=== PATIENT | male | born 1970 | race Caucasian/White ===

== ENCOUNTER 2016-12-27 04:06 | Inpatient (IN) | payer BC, SELFPAY ==
[2016-12-24 14:21] LABS: HEMATOCRIT 40.9 % (40.0-51.0); HEMOGLOBIN 13.8 g/dL (13.6-17.8)
--- NOTE | ~2016-12-27 | HP ---
History And Physical [facility] [id number] [facility] [place]. [address] NAME: ETHEL BERRY PASCUAL : 68 STATUS : ADM IN PAT#: [id number] AGE: 46 ADM/REG DATE : 12/27/16 MR#: [id number] REPORT SERV DATE: 12/29/16 DICTATED BY: JAKE CHOUDHURY DATE: 12/29/16 REPORT STATUS : Draft TRANSCRIBED BY: MODL DATE: 12/29/16 DATE OF ADMISSION: 12/27/2016 HISTORY AND PHYSICAL/CONSULTATION REASON FOR CONSULTATION: Intractable nausea and vomiting. HISTORY OF PRESENT ILLNESS: This is a 46-year-old white male who is status post a lumbosacral surgery performed by Dr. Contreras on 12/27/2016. He states that he had progressive and worsening pain that radiated from his back to his buttock and down both legs. The difficulties began some seven years ago, but he has been progressively getting worse over the past month. He started to have some worsening nausea and vomiting postoperatively and has had several episodes of this, has had significant hiccups, has felt like his abdomen has been quite swollen. He does state that he has had problems with constipation and abdominal bloating and gas for some years and had a colonoscopy done in 2013, where he was told he had problems with gas and constipation there and had a polyp removed and also reviewed an old CT scan from 2013 that indicated significant constipation then as well, but currently patient is exhibiting signs of ileus and he is hiccuping. His last episode of vomiting was early a.m., so his is at the bedside and is able to offer some history as well, as he does not currently have any prescriptions prior to admission and does not have a primary care. Of note, he also states that he has had some difficulties with polyuria for the past several weeks, waking up multiple times during the night to urinate and he has had some urinary retention postoperatively here. ALLERGIES: NO KNOWN DRUG OR FOOD ALLERGIES. PAST MEDICAL HISTORY: Heartburn, abdominal bloating, and gas. SURGICAL HISTORY: Only the colonoscopy as stated above. SOCIAL HISTORY: He smokes one pack a day of cigarettes. He drinks between 6 pack to a 12 pack of beers primarily on the weekends and occasionally during the week. 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 As stated, he does not have a primary care. REVIEW OF SYSTEMS: Otherwise negative 10-point review except for this thing stated in the above HPI. PHYSICAL EXAMINATION: VITAL SIGNS: Pulse rate of 90, temperature 97.3, blood pressure 112/63, respiratory rate of 18, room air 95%. GENERAL: He is alert and oriented x3 with the cooperative and awake for exam. He is in some mild distress with constant hiccuping during the conversation. NECK: He has no appreciable lymphadenopathy. No JVD noted. LUNGS: His lungs are clear, but diminished in the bases. CARDIOVASCULAR: No murmurs, rubs, or gallops are appreciated on auscultation of the chest. He is regular rate and rhythm. History And Physical [address] [address] NAME: ETHEL BERRY PASCUAL : 68 STATUS : ADM IN [facility]#: [id number] AGE: 46 ADM/REG DATE : 12/27/16 MR#: [id number] REPORT SERV DATE: 12/29/16 DICTATED BY: JAKE CHOUDHURY DATE: 12/29/16 REPORT STATUS : Draft TRANSCRIBED BY: RICCARDO DATE: 12/29/16 ABDOMEN: Extremely distended and rounded with hypoactive bowel sounds. He does have positive flatus and currently is hiccuping, and I have reviewed the KUB. EXTREMITIES: No edema in his lower extremities. Normal distal pulses. He has bilateral lower extremity weakness to both pronation and supination of his feet and adduction and abduction of the gross motor. HEENT: PERRLA is noted. Sclerae clear. SKIN: Otherwise skin is warm and dry. LABORATORY DATA: He does not currently have any recent lab work reviewed. A KUB x-ray personally showing significant gaseous distention and constipation. ASSESSMENT: 1. Nausea and vomiting. 2. Constipation. 3. Hiccups. 4. Questionable ileus versus small-bowel obstruction. 5. Urinary retention. 6. Polyuria. 7. Tobacco use. 8. Alcohol use. 9. Back pain, radiculopathy, status post lumbar surgery. PLAN: Will institute Dulcolax suppositories twice a day. We will add Reglan IV every eight hours. We will place an NG tube to low intermittent suction if he has persistent nausea and vomiting. We will obtain lab work to include CBC, CMP, TSH, hemoglobin A1c, and urinalysis. 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 I have updated the patient and at bedside. Questions were answered extensively. They are in agreement with this plan going forward. I have instructed him that he needs to establish a primary care JANELLE after discharge as well. We appreciate the opportunity to participate in the care of this patient. We will follow along with you. KIMBERLY/RICCARDO Jake Choudhury NP / [id number] CC: Marquez Contreras II, M.D.
--- NOTE | ~2016-12-27 | OP ---
Record Of Operation [facility] [address] [place]. [address] NAME: ETHEL BERRY PASCUAL : 68 STATUS : ADM IN PAT#: [id number] AGE: 46 ADM/REG DATE : 12/27/16 MR#: [id number] REPORT SERV DATE: 12/27/16 DICTATED BY: SOILA CONTRERAS II DATE: 12/27/16 REPORT STATUS : Draft TRANSCRIBED BY: MODL DATE: 12/27/16 DATE OF PROCEDURE: 12/27/2016 PREOPERATIVE DIAGNOSES: 1. Left lower extremity radiculopathy. 2. Discogenic low back pain, L4-5, L5-S1 with associated Modic changes. 3. Stenosis L4-5, L5-S1. POSTOPERATIVE DIAGNOSES: 1. Left lower extremity radiculopathy. 2. Discogenic low back pain, L4-5, L5-S1 with associated Modic changes. 3. Stenosis L4-5, L5-S1. PROCEDURE: 1. Lumbar laminectomy and facetectomy at L4-5, L5-S1. 2. Interbody arthrodesis, L4-5, L5-S1. 3. Application of prosthetic devices, L4-5, L5-S1. 4. Posterolateral arthrodesis, L4-5, L5-S1. 5. Posterior segmental instrumentation, L4-5, L5-S1. 6. Use of local autograft, allograft substitute, and bone morphogenic protein. 7. Use of the microscope and stereotactic spinal imaging. SURGEON: Soila Contreras MD. FLUIDS: 1400 mL LR. ESTIMATED BLOOD LOSS: 125 mL. DRAIN: One drain. COMPLICATIONS: None. ANTIBIOTIC: Preoperatively. IMPLANTS: Alpha-Arabella. PREOPERATIVE HISTORY: This is a very friendly, 46-year-old gentleman, who reports approximately 50% distribution between his back pain and his radiating pain in the buttock and leg. We discussed the pros and cons of laminectomy alone for leg pain versus laminectomy and fusion to help decrease back pain. He reported that his discogenic back pain was significant. We discussed the rates of success of the surgery to decrease the leg pain and back pain respectively. We discussed again the rates of success versus failure. Risks discussed include, but are not limited to infection, abscess, CSF leak, adjacent segment degeneration, and a small chance of stroke and . DESCRIPTION OF PROCEDURE: After informed consent was obtained, the patient was brought to Record Of Operation [facility] [address] [place]. [address] NAME: ETHEL BERRY PASCUAL : 68 STATUS : ADM IN PAT#: [id number] AGE: 46 ADM/REG DATE : 12/27/16 MR#: [id number] REPORT SERV DATE: 12/27/16 DICTATED BY: SOILA CONTRERAS II DATE: 12/27/16 REPORT STATUS : Draft TRANSCRIBED BY: MODL DATE: 12/27/16 the operating room at his request and general anesthesia achieved. He was placed in the prone position and the back was prepped and draped in a sterile fashion. The stereotactic spinal pin was placed into the right iliac crest and the intraoperative CT scan completed. Using stereotactic guidance, the incision was now made on the left at L4-5 and L5-S1. Overall, please note that the facetectomies and decompression were done separately procedure anderson to decompress the nerve roots causing his leg pain. This was a separate and identifiable procedure over and beyond just simply accessing the disk space for the interbody arthrodesis. At this point, the facetectomy was performed at L5-S1. The pars was now taken down with the high-speed bur under the microscope. The hveexyv-jr-bkwrwzx decompression was achieved with the high-speed bur, the Kerrison rongeurs, and the curettes. The ligamentum flavum was removed and the dura well decompressed. The L5 and S1 nerve roots were found to be well decompressed at this point. The irrigation was performed followed by identification of the L5 disk space. Gentle retraction was performed and the S1 nerve root carefully protected. The disk was now removed with pituitary rongeurs, Kerrison rongeurs, and the curettes. The endplates were now denuded of their cartilage and the punctate bleeding bone identified. The area was now irrigated followed by placement of local autograft, allograft substitute, and bone morphogenic protein into the anterior disk space. The prosthetic device was then trialed and placed at L5-S1. Excellent fit was obtained. Next, the similar procedure was performed and the facetectomy performed at L4-5. Once again, the ivvgvzt-xn-rfukuah decompression was achieved, adequately decompressed the L5 nerve root in particular. This nerve root exhibited also compression from the facet, but also a large piece of disk. The disk material was now removed and the L5 nerve root well decompressed. Next, the interbody arthrodesis was initiated with diskectomy and endplate preparation. The sheryl, the curettes, and the pituitary rongeurs were used. The disk space was irrigated. Next, the prosthetic device was trialed and chosen at L4-5. This contained allograft substitute and bone morphogenic protein. We also placed local autograft into the anterior column. Next, the pedicle screws were applied bilaterally. The bone quality was excellent. A repeat CT scan confirmed acceptable placement of the implants. The rods were then final tightened. Next, on the left side, we then decorticated the transverse processes of L4, L5, and S1. The local autograft, allograft substitute, and bone morphogenic protein were then placed along the decorticated surfaces. A deep drain was placed followed by standard closure and the patient was then extubated and transferred to PACU in stable condition. JENNIFER/RICCARDO Record Of Operation [address] [address] NAME: ETHEL BERRY PASCUAL : 68 STATUS : ADM IN PAT#: [id number] AGE: 46 ADM/REG DATE : 12/27/16 MR#: [id number] REPORT SERV DATE: 12/27/16 DICTATED BY: SOILA CONTRERAS II DATE: 12/27/16 REPORT STATUS : Draft TRANSCRIBED BY: RICCARDO DATE: 12/27/16 Soila Contreras II, M.D. / [id number] CC: Soila Contreras II, M.D.
--- NOTE | ~2016-12-27 | DS ---
Discharge Summary [facility] [address] [facility] [place]. [address] NAME: ETHEL BERRY PASCUAL : 68 STATUS : DIS IN PAT#: [id number] AGE: 46 ADM/REG DATE : 12/27/16 MR#: [id number] REPORT SERV DATE: 01/08/17 DICTATED BY: SOILA CONTRERAS II DATE: 01/07/17 REPORT STATUS : Draft TRANSCRIBED BY: MODL DATE: 01/07/17 Data Collection from hospitalization DISCHARGE DIAGNOSIS(ES): 1. Left lower extremity radiculopathy. 2. Diskogenic low back pain, L4-5, L5-S1 with associated Modic changes. 3. Stenosis, L4-5, L5-S1. 4. History of smoking. CONSULTATIONS: Jake Johnson NP. PROCEDURES PERFORMED: Lumbar laminectomy and facetectomy, L4-5, L5-S1. Interbody arthrodesis, L4-5, L5-S1. Application of prosthetic devices L4-5, L5-S1. Posterolateral arthrodesis, L4-5 L5-S1. Posterior segmental instrumentation, L4-5, L5-S1. Use of local autograft, allograft substitute, and bone morphogenetic protein. Use of the microscope and stereotactic spinal imaging, 12/27/2016. PATHOLOGY: Bone and soft tissue, L4 to S1. Fragments of bone, cartilage, fibroadipose tissue, and skeletal muscle. There is focal and remarkable hematopoietic marrow. No evidence of infection or tumor. MEDICATIONS: Valium 2 mg three times daily as needed, Neurontin 300 mg three times daily, oxycodone 5 mg one or two every six hours as needed, OxyContin 10 mg every 12 hours as needed, Phenergan 25 mg every six to eight hours as needed. CONDITION AT DISCHARGE: Upon discharge, he did appear to be doing well and had no complaints. DISPOSITION: He had been discharged home to continue a regular diet with activity as discussed. FOLLOWUP: He was to follow up with me in the office on 01/23/2017, follow up with his primary care physician in seven to ten days. HOSPITAL COURSE: This 46-year-old male had been complaining of L-spine related symptoms. The symptoms were located in the lower back with radiation into the lower extremities with the left being greater than the right with associated numbness, tingling, burning, and weakness. The pain intensified with coughing and/or sneezing. He denied any loss of bowel or bladder control. When asked about the severity level of the symptoms, he reported a pain level of 9 on a 0 to 10 scale. He reported primary pain complaint was constant. The patient reported the duration of the symptoms as first beginning several years ago. He reported vacuuming the floor on 11/19/2016 when he had felt a sharp pain in the lower back. He reported going to the emergency room and was diagnosed with spinal stenosis. The patient reported having a history of bulging disk. He admitted to the following factors that modified his symptoms. Any activity worsened his pain and symptoms. The pain and symptoms were worse in the morning. Nothing decreased the severity level of the pain and symptoms. He had been taking Ethan to treat his pain and symptoms. He had Toradol and Decadron injections with minimal relief. He had had an MRI of the lumbar spine at [address] [address] NAME: ETHEL BERRY PASCUAL : 68 STATUS : DIS IN PAT#: [id number] AGE: 46 ADM/REG DATE : 12/27/16 MR#: [id number] REPORT SERV DATE: 01/08/17 DICTATED BY: SOILA CONTRERAS II DATE: 01/07/17 REPORT STATUS : Draft TRANSCRIBED BY: RICCARDO DATE: 01/07/17 Sia. He was now admitted for surgery after he had failed conservative care. Upon admission to the hospital, he had been taken to the operating room, where he did undergo the above procedure. He did tolerate this well and was transferred to the recovery room. He had been seen postoperatively by Jake Johnson for medical management, as he had begun to have some worsening nausea and vomiting postoperatively, and he had had several episodes of this, he had also had significant hiccups, and he felt had like his abdomen had been quite swollen. He did state that he had problems with constipation and abdominal bloating and gas for some years and that he had had a colonoscopy in 2013, where he was told that he had problems with gas and constipation and that there had been a polyp that was removed. He was exhibiting signs of an ileus and was noted to be hiccuping. He did also state that he had some difficulties with polyuria for the past several weeks, waking up multiple times during the night to urinate and that he had some urinary retention postoperatively here. He had been placed on Dulcolax suppositories twice daily and was also placed on Reglan IV every eight hours. He was to have an NG tube placed to low intermittent suction if he had persistent nausea and vomiting. 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 He was also instructed that he needed to establish a primary care as soon as possible after discharge. He had also been evaluated by Physical Therapy. On postop day one, he did appear to be stable. He was noted to have had nausea and vomiting overnight and was refusing MS Contin, afraid that this was causing his nausea and vomiting. He did have some complaints of left lower extremity numbness; however, his pain was improved. He was encouraged to ambulate. On postop day two, his hiccups were improved and he was noted to have had a small bowel movement the previous evening, but he did continue to complain of abdominal pain and tightness as well as some nausea, but no vomiting. He was afebrile and his vital signs were stable. He was continued on supportive care and he did have a persistent radiculopathy noted on 12/31/2016. He did still have complaints of heartburn and hiccups and he was not mobilizing very well. He did state that he was in severe pain; however, was lying down and smiling with his hands over his abdomen. His abdomen was still noted to have been tight. His hiccups had persisted. However, they were coming and going. He did still have some nausea, but no vomiting. He was given one dose of Movantik and was continued on Reglan. He was encouraged to ambulate. He did remain in stable condition and was then discharged on 01/01/2017 with the above instructions. Information collected by: Vic Lui. I submit the above information as my discharge summary. RW/MODL Soila Contreras II, M.D. / [id number] CC: Soila Contreras II, M.D.
[2016-12-29 10:42] LABS: BASOPHILS 0.1 %; BASOPHILS ABSOLUTE 0.01 10/3/uL (0.0-0.16); EOSINOPHILS 0.3 %; EOSINOPHILS ABSOLUTE 0.03 10/3/uL (0.0-0.53); HEMOGLOBIN 12.1 g/dL (13.6-17.8); IMMATURE GRANULOCYTES 0.5 %; IMMATURE GRANULOCYTES ABSOLUTE 0.05 10/3/uL (0.0-0.11); LYMPHOCYTES 16.7 %; LYMPHOCYTES ABSOLUTE 1.84 10/3/uL (0.67-4.30); MEAN CORPUS HGB CONC 33.9 g/dL (32.0-36.0); MEAN CORPUSCULAR HEMOGLOB 31.8 pg (26.0-34.0); MEAN CORPUSCULAR VOLUME 93.9 fL (80-100); MEAN PLATELET VOLUME 10.2 fL (9.2-13.0); MONOCYTES 6.8 %; MONOCYTES ABSOLUTE 0.75 10/3/uL (0.21-1.20); NEUTROPHILS 75.6 %; NEUTROPHILS ABSOLUTE 8.35 10/3/uL (2.02-8.40); PLATELET COUNT 267 10/3/uL (150-400); RBC DISTRIBUTION WIDTH 13.3 % (12.0-16.0)
[2016-12-29 10:43] LABS: HEMATOCRIT 35.7 % (40.0-51.0); MANUAL DIFF NO %
[2016-12-29 11:04] LABS: ALBUMIN 3.5 G/DL (3.5-5.0); ALKALINE PHOSPHATASE 67 U/L (45-117); BUN (BLOOD UREA NITROGEN) 16 MG/DL (6-23); CALCIUM, SERUM 8.3 MG/DL (8.5-10.4); CHLORIDE, SERUM 101 MMOL/L (96-112); CO2 (CARBON DIOXIDE) 29 MMOL/L (24-34); CREATININE 1.15 MG/DL (0.70-1.30); GFR AFRICAN AMERICAN 87 ML/MIN (>=60); GFR NON AFRICAN AMERICAN 75 ML/MIN (>=60); GLOBULIN 3.4 G/DL (2.5-4.1); GLUCOSE, SERUM 89 MG/DL (60-99); POTASSIUM, SERUM 3.9 MMOL/L (3.5-5.3); SGOT(AST) 26 U/L (5-40); SGPT(ALT) 34 U/L (5-65); SODIUM, SERUM 134 MMOL/L (135-148); TOTAL BILIRUBIN 0.3 MG/DL (0-1.2); TOTAL PROTEIN 6.9 G/DL (6.0-8.5)
[2016-12-29 18:47] LABS: ASCORBIC ACID (UR NOT ORDER) NEG (NEG); BILIRUBIN, URINE NEGATIVE (NEG); KETONE, URINE NEGATIVE (NEG); LEUKOCYTE ESTERASE(NOT OR TRACE (NEG); WBC (NOT ORDERED) (RFLEX) 3 (0-5)
[2016-12-30 05:01] LABS: BASOPHILS 0.1 %; BASOPHILS ABSOLUTE 0.01 10/3/uL (0.0-0.16); EOSINOPHILS 1.4 %; EOSINOPHILS ABSOLUTE 0.12 10/3/uL (0.0-0.53); HEMATOCRIT 34.9 % (40.0-51.0); HEMOGLOBIN 11.8 g/dL (13.6-17.8); IMMATURE GRANULOCYTES 0.6 %; IMMATURE GRANULOCYTES ABSOLUTE 0.05 10/3/uL (0.0-0.11); LYMPHOCYTES 23.5 %; LYMPHOCYTES ABSOLUTE 1.99 10/3/uL (0.67-4.30); MANUAL DIFF NO %; MEAN CORPUS HGB CONC 33.8 g/dL (32.0-36.0); MEAN CORPUSCULAR VOLUME 94.6 fL (80-100); MEAN PLATELET VOLUME 10.7 fL (9.2-13.0); MONOCYTES 8.9 %; MONOCYTES ABSOLUTE 0.75 10/3/uL (0.21-1.20); NEUTROPHILS 65.5 %; NEUTROPHILS ABSOLUTE 5.55 10/3/uL (2.02-8.40); PLATELET COUNT 261 10/3/uL (150-400); RBC DISTRIBUTION WIDTH 13.3 % (12.0-16.0); RED CELL COUNT 3.69 10/6/uL (4.7-6.1); WHITE BLOOD CELLS 8.5 10/3/uL (4.5-10.5)
[2016-12-30 05:08] LABS: CALCIUM, SERUM 8.1 MG/DL (8.5-10.4); CHLORIDE, SERUM 104 MMOL/L (96-112); CO2 (CARBON DIOXIDE) 30 MMOL/L (24-34); CREATININE 0.96 MG/DL (0.70-1.30); GFR AFRICAN AMERICAN 109 ML/MIN (>=60); GFR NON AFRICAN AMERICAN 94 ML/MIN (>=60); GLUCOSE, SERUM 88 MG/DL (60-99); POTASSIUM, SERUM 3.8 MMOL/L (3.5-5.3); SODIUM, SERUM 138 MMOL/L (135-148)
[2016-12-30 05:09] LABS: BUN (BLOOD UREA NITROGEN) 12 MG/DL (6-23)
[2017-01-01] MEDS ORDERED: OXYCON10 PO (14:54)
[2017-01-01] MEDS ORDERED: V2 PO (14:54)
[2017-01-01] MEDS ORDERED: PR25 PO (14:55)
[2017-01-01] MEDS ORDERED: ROXICODONE15 MG PO (14:56)
[2017-01-01] MEDS ORDERED: NEUR300 PO (14:56)
[2017-04-10] MEDS ORDERED: NEUR600 PO (12:37)
[2017-04-10] MEDS ORDERED: PERCOCET 10/3251 TAB PO (12:37)
[2017-04-10] MEDS ORDERED: V5 PO (12:37)
[2017-04-10] MEDS ORDERED: MSCONTIN PO (12:38)
== END 2017-01-01 16:07 | disposition home or self-care (01) | DRG 460 ==
LOC: SDC/OF 04:06 → PACU 09:25 → 3SO 13:11
PROVIDERS: Nurse Practitioner Family; Orthopaedic Surgery
PROC: 0SG00AJ Fusion of Lumbar Vertebral Joint with Interbody Fusion Device, Posterior Approach, Anterior Column, Open Approach (ICD-10-PCS; principal; 2016-12-27 05:45)
PROC: 0SG30AJ Fusion of Lumbosacral Joint with Interbody Fusion Device, Posterior Approach, Anterior Column, Open Approach (ICD-10-PCS; 2016-12-27 05:45)
PROC: 0SG0071 Fusion of Lumbar Vertebral Joint with Autologous Tissue Substitute, Posterior Approach, Posterior Column, Open Approach (ICD-10-PCS; 2016-12-27 05:45)
PROC: 4A11X4G Monitoring of Peripheral Nervous Electrical Activity, Intraoperative, External Approach (ICD-10-PCS; 2016-12-27 05:45)
DX: M51.16 Intervertebral disc disorders with radiculopathy, lumbar region (principal); F10.10 Alcohol abuse, uncomplicated; F17.210 Nicotine dependence, cigarettes, uncomplicated
CPT/HCPCS: 74000; 80048; 80053; 81001; 82962; 83036; 84443; 85014; 85018; 85025; 87641; 88304; 88311; 97116-GP; 97162-GP; 97530-GP; A9270-GY; C1713; C1768; C1769; J0690; J1170; J2250; J2270; J2370; J2405; J2710; J2765; J3010

== ENCOUNTER 2017-01-10 03:42 | Emergency (ER) | payer BC ==
[~2017-01-10 03:42] MED LIST: NEUR300 PO; OXYCON10 PO; PR25 PO; ROXICODONE15 MG PO; V2 PO
[2017-01-10 04:24] LABS: BASOPHILS 0.2 %; BASOPHILS ABSOLUTE 0.02 10/3/uL (0.0-0.16); EOSINOPHILS 2.5 %; EOSINOPHILS ABSOLUTE 0.24 10/3/uL (0.0-0.53); ER CBC TAT 0 Hrs 05 Mins; HEMATOCRIT 38.1 % (40.0-51.0); HEMOGLOBIN 13.3 g/dL (13.6-17.8); IMMATURE GRANULOCYTES 0.5 %; IMMATURE GRANULOCYTES ABSOLUTE 0.05 10/3/uL (0.0-0.11); LYMPHOCYTES 17.2 %; LYMPHOCYTES ABSOLUTE 1.67 10/3/uL (0.67-4.30); MEAN CORPUS HGB CONC 34.9 g/dL (32.0-36.0); MEAN CORPUSCULAR HEMOGLOB 32.6 pg (26.0-34.0); MEAN CORPUSCULAR VOLUME 93.4 fL (80-100); MONOCYTES 3.5 %; MONOCYTES ABSOLUTE 0.34 10/3/uL (0.21-1.20); NEUTROPHILS 76.1 %; NEUTROPHILS ABSOLUTE 7.37 10/3/uL (2.02-8.40); RBC DISTRIBUTION WIDTH 12.8 % (12.0-16.0); RED CELL COUNT 4.08 10/6/uL (4.7-6.1); WHITE BLOOD CELLS 9.7 10/3/uL (4.5-10.5)
[2017-01-10 04:25] LABS: MANUAL DIFF NO %; PLATELET COUNT 385 10/3/uL (150-400)
[2017-01-10 04:34] LABS: D-DIMER QUANTITATIVE 1.83 ug/mLFEU (< 0.50)
[2017-01-10 04:39] LABS: BUN (BLOOD UREA NITROGEN) 10 MG/DL (6-23); CALCIUM, SERUM 8.9 MG/DL (8.5-10.4); CHLORIDE, SERUM 107 MMOL/L (96-112); CO2 (CARBON DIOXIDE) 28 MMOL/L (24-34); CREATININE 0.91 MG/DL (0.70-1.30); GFR AFRICAN AMERICAN 116 ML/MIN (>=60); GFR NON AFRICAN AMERICAN 100 ML/MIN (>=60); POTASSIUM, SERUM 3.9 MMOL/L (3.5-5.3); SODIUM, SERUM 139 MMOL/L (135-148)
[2017-01-10 04:40] LABS: GLUCOSE, SERUM 107 MG/DL (60-99)
[2017-04-10] MEDS ORDERED: PERCOCET 10/3251 TAB PO (12:37)
[2017-04-10] MEDS ORDERED: V5 PO (12:37)
[2017-04-10] MEDS ORDERED: NEUR600 PO (12:37)
[2017-04-10] MEDS ORDERED: MSCONTIN PO (12:38)
== END 2017-01-10 10:22 | disposition home or self-care (01) ==
LOC: ER 03:42
PROVIDERS: Nurse Practitioner
DX: M79.662 Pain in left lower leg (principal); K21.9 Gastro-esophageal reflux disease without esophagitis; F17.200 Nicotine dependence, unspecified, uncomplicated; Z79.899 Other long term (current) drug therapy
CPT/HCPCS: 80048; 85025; 85379; 93971; 96372; 96374; 96375; 96376; 99284; A9270-GY; J1170; J2360; J2405; J2550